=== PATIENT | male | born 1935 | race Caucasian/White ===

== ENCOUNTER 2016-07-27 18:37 | Inpatient (IN) | payer OTHER, BC ==
[~2016-07-27] VITALS: Ht 177.8 cm; Wt 87.2 kg
[~2016-07-27 18:37] MED LIST: ASPIR 8181 M1 PO; ASPIRIN CHEWABL81 M1 PO; CALCITRIOL0.25 MC1 PO; CRESTOR40 MG PO; Ecotrin PO; FUROSEMIDE40 MG PO; Feosol PO; LISINOPRIL2.5 MG PO; OMEGA 3-6-91200 MG PO; PROTONIX40 MG PO; ROCALTROL0.25 MCG PO; Rocaltrol PO; SENOKOT S,PE1 TABLET PO; SPIRONOLACTONE25 MG PO; TOPROL XL50 MG PO; VITAMIN B-12250 MCG PO; Vicodin,Lortab 5/500 PO; Vitamin B-12 PO
[2016-07-27 19:28] LABS: HEMATOCRIT 33.5 % (38.0-50.0); MCH 27.6 PG (29.0-34.0); MCHC 30.4 G/DL (30.0-36.0); MCV 90.8 FL (86-99); PLATELET COUNT 262 K/uL (156-360); RBC DIS.WIDTH-CV 17.2 % (11.8-14.6); RBC DIS.WIDTH-SD 54.9 % (39-53); RED BLOOD COUNT 3.69 M/uL (4.00-5.50); WHITE BLOOD COUNT 10.6 K/uL (4.1-10.2)
[2016-07-27 19:40] LABS: CHLORIDE 110 mEq/L (99-109); POTASSIUM 4.5 mEq/L (3.7-5.4); SODIUM 146 mEq/L (136-147)
[2016-07-27 19:42] LABS: GLUCOSE 124 mg/dL (70-99)
[2016-07-27 19:43] LABS: ANION GAP 12 MEQ/L (2-14)
[2016-07-27 19:45] LABS: GFR ESTIMATE (CALCULATED) 39 mL/min/
[2016-07-27 19:46] LABS: UREA NITROGEN (BUN) 27 mg/dL (9-23)
[2016-07-27 22:24] LABS: TROP-I INTERPRETATION NEGATIVE; TROPONIN-I 0.04 ng/mL (0.0-0.30)
[2016-07-27] MEDS ORDERED: TOPROL XL100 MG PO (22:56)
[2016-07-27] MEDS ORDERED: CRESTOR20 MG PO (22:56)
[2016-07-27] MEDS ORDERED: FUROSEMIDE20 MG PO (22:57)
[2016-07-27] MEDS ORDERED: PROTONIX40 MG PO (22:57)
[2016-07-28 02:15] VITALS: BP 153/66
[2016-07-28 05:43] VITALS: BP 121/54
[2016-07-28 08:44] VITALS: BP 107/64
[2016-07-28 16:31] VITALS: BP 98/51
[2016-07-28 19:19] VITALS: BP 111/56
[2016-07-28 22:44] VITALS: BP 111/51
[2016-07-29] VITALS (7 sets, daily range): BP systolic 96–127; BP diastolic 54–69
[2016-07-29 06:19] LABS: HEMATOCRIT 31.3 % (38.0-50.0); MCH 27.8 PG (29.0-34.0); MCHC 30.7 G/DL (30.0-36.0); MCV 90.7 FL (86-99); MEAN PLAT.VOLUME 10.6 uM^3 (9.0-12.4); PLATELET COUNT 237 K/uL (156-360); RBC DIS.WIDTH-CV 17.5 % (11.8-14.6); RBC DIS.WIDTH-SD 57.8 % (39-53); RED BLOOD COUNT 3.45 M/uL (4.00-5.50); WHITE BLOOD COUNT 8.9 K/uL (4.1-10.2)
[2016-07-29 06:40] LABS: ANION GAP 8 MEQ/L (2-14); CHLORIDE 105 MEQ/L (99-109); GFR ESTIMATE (CALCULATED) 39 mL/min/; GLUCOSE 110 mg/dL (70-99); MAGNESIUM 1.5 mg/dl (1.3-2.7); POTASSIUM 4.2 MEQ/L (3.7-5.4); SAMPLE HEMOLYSIS CHECK 0; SAMPLE ICTERIC CHECK 0; SAMPLE LIPEMIA CHECK 0; SODIUM 145 MEQ/L (136-147); UREA NITROGEN (BUN) 26 mg/dL (9-23)
[2016-07-30 04:13] VITALS: BP 103/61
[2016-07-30 06:16] LABS: HEMATOCRIT 32.2 % (38.0-50.0); MCH 27.2 PG (29.0-34.0); MCHC 30.1 G/DL (30.0-36.0); MCV 90.2 FL (86-99); MEAN PLAT.VOLUME 10.6 uM^3 (9.0-12.4); PLATELET COUNT 239 K/uL (156-360); RBC DIS.WIDTH-CV 17.3 % (11.8-14.6); RBC DIS.WIDTH-SD 57.5 % (39-53); RED BLOOD COUNT 3.57 M/uL (4.00-5.50)
[2016-07-30 07:38] LABS: ANION GAP 10 MEQ/L (2-14); CHLORIDE 103 MEQ/L (99-109); GFR ESTIMATE (CALCULATED) 41 mL/min/; GLUCOSE 108 mg/dL (70-99); SAMPLE HEMOLYSIS CHECK 0; SAMPLE ICTERIC CHECK 0; SAMPLE LIPEMIA CHECK 0; SODIUM 143 MEQ/L (136-147); UREA NITROGEN (BUN) 26 mg/dL (9-23)
[2016-07-30 08:39] VITALS: BP 110/55
[2016-07-30] MEDS ORDERED: FUROSEMIDE20 MG PO (09:58)
[2016-07-30] MEDS ORDERED: NYSTATIN15 GM TP (09:59)
== END 2016-07-30 12:13 | disposition home or self-care (01) | DRG 292 ==
LOC: EME 18:37 → EDOF 22:55 → 5WEST 22:55 → 5EAST 07-28 10:43 → 5WEST 07-28 10:43 → 5EAST 07-28 14:08
PROVIDERS: Internal Medicine
DX: I50.43 Acute on chronic combined systolic (congestive) and diastolic (congestive) heart failure (principal); J90 Pleural effusion, not elsewhere classified; J44.9 Chronic obstructive pulmonary disease, unspecified; I12.9 Hypertensive chronic kidney disease with stage 1 through stage 4 chronic kidney disease, or unspecified chronic kidney disease; N18.3 Chronic kidney disease, stage 3 (moderate); D63.1 Anemia in chronic kidney disease; I25.10 Atherosclerotic heart disease of native coronary artery without angina pectoris; I35.0 Nonrheumatic aortic (valve) stenosis; M19.90 Unspecified osteoarthritis, unspecified site; Z95.810 Presence of automatic (implantable) cardiac defibrillator; E78.2 Mixed hyperlipidemia; Z95.1 Presence of aortocoronary bypass graft
CPT/HCPCS: 71010; 71020; 80048; 82948; 83735; 83880; 84484; 85027; 93005; 93970; 94640; 94799; 99281; 99285; G0008; G0378; J1644; J1940

== ENCOUNTER → 2017-07-29 | Outpatient (CLI) | payer OTHER, BC ==
[~2017-07-29] MED LIST changes: +CRESTOR20 MG PO; +FUROSEMIDE20 MG PO; +NYSTATIN15 GM TP; +TOPROL XL100 MG PO
[2017-07-29 09:58] LABS: TYPE OF FLUID PLEURAL
[2017-07-29 10:21] LABS: APPEARANCE YELLOW-CLEAR; BODY FLUID RBC'S 1000 /MM^3 (0-100); BODY FLUID WBC'S 345 /MM^3 (0-500)
[2017-07-29 10:44] LABS: BODY FLUID EOSINOPHILS 18 % (0-25); MONONUCLEAR WBC'S 72 %; POLYNUCLEAR WBC'S 10 % (0-25)
[2017-07-29 10:50] LABS: BODY FLUID GLUCOSE 106 MG/DL; BODY FLUID LDH 124 IU/L; BODY FLUID PROTEIN 3.6 G/DL
== END | disposition home or self-care (01) ==
LOC: RAD 07-26 09:00 → EDSTATUS 09:00
PROVIDERS: Internal Medicine Pulmonary Disease
PROC: 0W993ZZ Drainage of Right Pleural Cavity, Percutaneous Approach (ICD-10-PCS; principal; 2017-07-29)
DX: J90 Pleural effusion, not elsewhere classified (principal)
CPT/HCPCS: 76942; 82945; 83615 91; 84157; 87070; 87075; 87116; 87205; 87206; 88108; 88305; 89051

== ENCOUNTER → 2017-09-27 | Outpatient (CLI) | payer OTHER, BC ==
[2017-09-27 11:58] LABS: TYPE OF FLUID THORACENTESIS
[2017-09-27 13:02] LABS: APPEARANCE CLEAR-YELLOW; BODY FLUID RBC'S 2000 /MM^3 (0-100); BODY FLUID WBC'S 495 /MM^3 (0-500)
[2017-09-27 13:08] LABS: BODY FLUID EOSINOPHILS 21 % (0-25); MONONUCLEAR WBC'S 62 %; POLYNUCLEAR WBC'S 17 % (0-25)
[2017-09-27 16:10] LABS: BODY FLUID GLUCOSE 108 MG/DL; BODY FLUID LDH 135 IU/L; BODY FLUID PROTEIN 3.9 G/DL
== END | disposition home or self-care (01) ==
LOC: RAD 10:28 → EDSTATUS 11:00 → RAD 11:00
PROVIDERS: Nurse Practitioner Adult Health
PROC: 0W993ZZ Drainage of Right Pleural Cavity, Percutaneous Approach (ICD-10-PCS; principal; 2017-09-27)
DX: J90 Pleural effusion, not elsewhere classified (principal)
CPT/HCPCS: 76942; 82945; 83615 91; 84157; 87070; 87205; 88108; 88305; 89051

== ENCOUNTER → 2017-11-01 | Outpatient (CLI) | payer OTHER, BC ==
[~2017-11-01] MED LIST changes: +LOPRESSOR100 M1 PO; +OMEPRAZOLE20 MG PO
== END | disposition home or self-care (01) ==
LOC: OPR 08:22 → EDSTATUS 09:00 → OPR 09:00
PROC: 0B9N30Z Drainage of Right Pleura with Drainage Device, Percutaneous Approach (ICD-10-PCS; principal; 2017-11-01)
DX: J90 Pleural effusion, not elsewhere classified (principal); I11.0 Hypertensive heart disease with heart failure; I50.9 Heart failure, unspecified; N28.9 Disorder of kidney and ureter, unspecified; Z87.891 Personal history of nicotine dependence; I25.2 Old myocardial infarction; E78.5 Hyperlipidemia, unspecified; I65.29 Occlusion and stenosis of unspecified carotid artery; Z95.0 Presence of cardiac pacemaker; Z95.810 Presence of automatic (implantable) cardiac defibrillator; Z79.82 Long term (current) use of aspirin; Z96.652 Presence of left artificial knee joint
CPT/HCPCS: 32557; C1729; J3010

== ENCOUNTER → 2018-01-23 | Outpatient (CLI) | payer OTHER, BC | END | disposition home or self-care (01) | LOC: RAD 12:09 | PROC: 0WP930Z Removal of Drainage Device from Right Pleural Cavity, Percutaneous Approach (ICD-10-PCS; principal; 2018-01-23) | DX: J90 Pleural effusion, not elsewhere classified (principal) | CPT/HCPCS: 32552 ==